=== PATIENT | male | born 2005 | race Caucasian/White ===

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

== ENCOUNTER 2023-10-24 10:45 | Emergency (ER) | payer OTHER ==
[~2023-10-24] VITALS: Ht 175.3 cm; Wt 89.9 kg
[2023-10-24] MEDS ORDERED: METHYLPHENIDATE10 M6 PO (10:56)
[2023-10-24] MEDS ORDERED: CLONIDINE HCL0.1 M1 PO (10:56)
[2023-10-24 12:01] VITALS: BP 116/78
== END 2023-10-24 12:04 | disposition home or self-care (01) ==
LOC: ED 10:45
DX: M72.2 Plantar fascial fibromatosis (principal); F90.9 Attention-deficit hyperactivity disorder, unspecified type; Z79.899 Other long term (current) drug therapy
CPT/HCPCS: 99283